=== PATIENT | female | born 1940 | race Hispanic/Latino ===

== ENCOUNTER 2019-01-15 16:04 | Emergency (ER) | payer MEDICARE ==
[2019-01-15] MEDS ORDERED: Ketorolac Tromethamine 30 MG/ML VIAL ONE (16:44)
--- NOTE | 2019-01-15 17:07 | RAD ---
Right knee 4 views HISTORY: Right knee pain. FINDINGS: Minimal osteophytosis of the tibial spines. Joint spaces are preserved. No acute fracture, dislocation, or fluid distention of the suprapatellar bursa. IMPRESSION: No acute osseous abnormalities are demonstrated.
== END 2019-01-15 17:15 | disposition home or self-care (01) ==
LOC: SCSER 16:04
DX: M25.561 Pain in right knee (principal); F41.9 Anxiety disorder, unspecified; F32.9 Major depressive disorder, single episode, unspecified; I10 Essential (primary) hypertension; Z79.899 Other long term (current) drug therapy
CPT/HCPCS: 96372; J1885